=== PATIENT | female | born 2000 | race Two or more races ===

== ENCOUNTER 2019-04-24 12:44 | Emergency (ER) | payer MEDICAID ==
--- NOTE | 2019-04-24 13:15 | EDM.PDOC ---
ED HPI GENERAL MEDICAL PROBLEM - General Chief Complaint: Upper Extremity Injury/Pain Stated Complaint: R HAND INJURY Time Seen by Provider: 04/24/19 12:55 - History of Present Illness INITIAL COMMENTS - FREE TEXT/NARRATIVE: 18-year-old female presents emergency room with a painful right hand. Shortly before arrival she punched a door at work. Now her hand is swollen especially on the ulnar aspect. Patient denies any possibility of . Patient denies any other injury associated with this mishap. Right Hand Pain Score (Numeric/FACES): 8 - Related Data Allergies Allergy/AdvReac Type Severity Reaction Status Date / Time No Known Allergies Allergy Verified 04/24/19 12:48 Home Meds: Home Meds . [No Known Home Meds] 04/24/19 [History] Past Medical History - Past Health History Medical/Surgical History: Denies Medical/Surgical History Social & Family History - Tobacco Use Smoking Status *Q: Former Smoker Used Tobacco, but Quit: Yes Month/Year Tobacco Last Used: february - Recreational Drug Use Recreational Drug Use: No Review of Systems - Review of Systems Review Of Systems: See Below Constitutional: Reports: No Symptoms Respiratory: Reports: No Symptoms Cardiovascular: Reports: No Symptoms GI/Abdominal: Reports: No Symptoms ED EXAM, GENERAL - Physical Exam Exam: See Below Respiratory/Chest: No Respiratory Distress, Lungs Clear, Normal Breath Sounds Cardiovascular: Regular Rate, Rhythm, No Edema, No Murmur Extremities: Other (Examination the right forearm shows no obvious problems supination pronation intact flexion extension at the elbow intact the wrist is starting to swell from the injury along the distal metacarpal on the ulnar aspect. The patient has good range of motion with her index finger is somewhat tender on full extension and flexion. The patient has significant discomfort with trying to move her pinky finger. Thumb appears normal. Neurovascular status appears normal.) ED TRAUMA EXTREMITY PROCEDURES - Splinting Left Upper Extremity Pre-Procedure NV Status: Normal Post-Procedure NV Status: Normal Splint Material: Fiberglass Splint Design: Gutter Applied & Form Fitted By: Provider Provider Post-Splint Application NV Check: NV Status Normal Complications: No Progress/Comments: The patient did much better after having a ulnar gutter splint applied to her left forearm and wrist hand and digits. Neurovascular status after this was applied was normal and at the time of discharge was normal. Course - Vital Signs Last Recorded V/S: Last Vital Signs Temp 36.3 C 04/24/19 12:49 Pulse 62 04/24/19 12:49 Resp 16 04/24/19 12:49 BP 131/76 04/24/19 12:49 Pulse Ox 100 04/24/19 12:49 - Orders/Labs/Meds Orders: Active Orders 24 hr Category Date Time Status Hand Comp Min 3V Rt [CR] Stat Exams 04/24/19 13:09 Taken - Re-Assessments/Exams Free Text/Narrative Re-Assessment/Exam: 04/24/19 14:13 X-ray examination shows fracture of the fourth and fifth metacarpal at about the proximal third. There a palmar flexed deformity of the distal fragments with some milder radial deviation. Case was discussed with Dr. Avila with [facility]'s recommendation is have the patient call their office on Friday for a Friday appointment patient be placed in a ulnar gutter splint. The splint was applied and the patient actually feels quite a bit better having the splinted. Departure - Departure Time of Disposition: 14:14 Disposition: Home, Self-Care 01 Clinical Impression: Fracture, metacarpal shaft Qualifiers: Metacarpal bone: fourth Fracture type: closed Fracture alignment: displaced Laterality: left Fracture, metacarpal Qualifiers: Metacarpal bone: fifth - Discharge Information Instructions: Metacarpal Fracture, [id number], Cast or Splint Care, Adult Referrals: PCP,None [Primary Care Provider] - Forms: ED Department Discharge Additional Instructions: Return to emergency room if any questions problems or worsening symptoms. Return to emergency room if he develop any numbness or tingling in her fingers. Follow-up with [facility]. Call them first thing Friday morning for an appointment on Friday phone number is [phone]. Wear the splint at all times keep your hand elevated as much as you can ice over the hand as tolerated for the next several days. Tylenol or ibuprofen as needed for discomfort. - My Orders Last 24 Hours: My Active Orders 04/24/19 13:09 Hand Comp Min 3V Rt [CR] Stat - Assessment/Plan Last 24 Hours: My Active Orders 04/24/19 13:09 Hand Comp Min 3V Rt [CR] Stat
--- NOTE | 2019-04-25 16:01 | CR ---
Right hand: Four views of the right hand are obtained. Comparison: No prior hand exam. Displaced and angulated fractures are seen within the shaft of the 4th and 5th metacarpals. Soft tissue swelling is noted. No additional fracture or other abnormality is appreciated. Impression: 1. Fractures within the 4th and 5th metacarpals as noted above. 2. Soft tissue swelling. Diagnostic code #3
== END 2019-04-24 14:40 | disposition home or self-care (01) ==
LOC: JD.ED 12:44
DX: S62.325A Displaced fracture of shaft of fourth metacarpal bone, left hand, initial encounter for closed fracture (principal); S62.327A Displaced fracture of shaft of fifth metacarpal bone, left hand, initial encounter for closed fracture; Z87.891 Personal history of nicotine dependence; W22.09XA Striking against other stationary object, initial encounter; Y92.89 Other specified places as the place of occurrence of the external cause; Y99.0 Civilian activity done for income or pay
CPT/HCPCS: 29125; 73130-26-RT; 73130-RT; 99283; 99283-25

== ENCOUNTER 2020-01-28 02:14 | Emergency (ER) | payer MEDICAID ==
--- NOTE | 2020-01-28 03:10 | EDM.PDOC ---
ED HPI GENERAL MEDICAL PROBLEM - General Chief Complaint: Chemical Exposure Stated Complaint: CHEST PAIN Time Seen by Provider: 01/28/20 02:30 Source of Information: Reports: Patient History Limitations: Reports: No Limitations - History of Present Illness INITIAL COMMENTS - FREE TEXT/NARRATIVE: Ms. Mariee is a very pleasant 19-year-old woman who now presents the ED after developing shortness of breath, nausea, and lightheaded after being exposed to chlorine bleach fumes around 01:20 this morning, while at work. 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 The patient states that she was wearing an ordinary cotton mask, not a respirator, but states that she has worked with this bleach in the past without difficulty, but she ordinarily sprays it, then walks away. After scrubbing for a little while, she states that she became overwhelmed by the fumes, therefore she had to step away to get some air. She states that she removed her mask, then became nauseated and lightheaded. Here in the ED, the patient is found to be hemodynamically stable, afebrile, saturating 100% on room air. He states that she has a tingling sensation to her head and torso. Her shortness of breath nausea, and lightheadedness have resolved. She denies experiencing a burning sensation in her nose, mouth, or chest, and she denies experiencing chest pain or palpitations. No prior similar symptoms. Other than this morning's event, the patient denies having a recent fever, chills, sore throat, ear pain, nasal or sinus congestion, cough, dyspnea, chest pain, palpitations, nausea, vomiting, constipation, diarrhea, abdominal pain, urinary symptoms, recent weight gain or weight loss, recent bloody bowel movements or black bowel movements, recent joint aches, headaches, or rashes. The patient states that she works the shift supervisor film processing, but that 2 members of a team on the day shift were found to be positive for the SARS-CoV-2 virus. The dayshift team was quarantined. The patient states that she has not had any contact with any of the members of that day shift team. The patient does not have a PCP. Middle Chest Pain Score (Numeric/FACES): 0 - Related Data Allergies Allergy/AdvReac Type Severity Reaction Status Date / Time No Known Allergies Allergy Verified 01/28/20 02:29 Home Meds: Home Meds . [No Known Home Meds] 04/24/19 [History] Past Medical History Musculoskeletal History: Reports: Fracture (right 4th and 5th metacarpals) Endocrine/Metabolic History: Reports: Obesity/BMI 30+ - Past Surgical History HEENT Surgical History: Reports: Oral Surgery (wisdom teeth extraction) GI Surgical History: Reports: Appendectomy Musculoskeletal Surgical History: Reports: ORIF (right 4th and 5th metacarpals) Social & Family History - Family History Family Medical History: Noncontributory - Tobacco Use Smoking Status *Q: Former Smoker Years of Tobacco use: 1 Packs/Tins Daily: 0.1 Month/Year Tobacco Last Used: Quit 2018 - Caffeine Use Caffeine Use: Reports: Soda - Alcohol Use Alcohol Use History: No - Recreational Drug Use Recreational Drug Use: No - Living Situation & Occupation Living situation: Reports: Single, with Family Occupation: Employed ([employer]) ED ROS GENERAL - Review of Systems Review Of Systems: Comprehensive ROS is negative, except as noted in HPI. ED EXAM, BURN/SMOKE INHALATION - Physical Exam Exam: See Below Exam Limited By: No Limitations General Appearance: Alert, WD/WN, No Apparent Distress Eye Exam: Bilateral Eye: EOMI, Normal Inspection Ears (Abbreviated): Normal External Exam, Normal Canal, Hearing Grossly Normal, Normal TMs Nose: Mouth/Throat: No: Lip Swelling, Oral Rollins, Oral Inflammation, Pharyngeal Erythema, Throat Swelling, Tongue Swelling, Tonsillar Swelling, Uvular Edema Head: Atraumatic, Normocephalic Neck: Normal, Supple, Non-Tender to Palpation, Full Range of Motion. No: Lymphadenophy (R), Lymphadenopy (L) Respiratory: No Respiratory Distress, Lungs Clear, Normal Breath Sounds, No Accessory Muscle Use. No: Decreased Breath Sounds, Crackles, Rhonchi, Wheezing, Prolonged Expiration Cardiovascular: Normal Peripheral Pulses, Regular Rate, Rhythm, No Edema, No Gallop, No JVD, No Murmur, No Rub Peripheral Pulses: 3+: Radial (L), Radial (R) GI/Abdominal: Normal Bowel Sounds, Soft, Non-Tender, No Organomegaly, No Distention, No Abnormal Bruit, No Mass (Female) Exam: Deferred Rectal Exam: Deferred Back Exam: Normal Inspection, Full Range of Motion, NT Extremities: Normal Inspection, Normal Range of Motion, No Pedal Edema, Normal Capillary Refill Neurological: Alert, Oriented, Normal Cognition, No Motor/Sensory Deficits Psychiatric: Normal Affect Skin Exam: Warm, Dry, Intact, Normal Color, No Rash Course - Vital Signs Last Recorded V/S: Last Vital Signs Temp 36.8 C 01/28/20 02:25 Pulse 65 01/28/20 02:25 Resp 14 01/28/20 02:25 BP 131/64 01/28/20 02:25 Pulse Ox 100 01/28/20 02:25 - Orders/Labs/Meds Orders: Active Orders 24 hr Category Date Time Status Chest 2V [CR] Stat Exams 01/28/20 02:57 Ordered - Re-Assessments/Exams Free Text/Narrative Re-Assessment/Exam: 01/28/20 03:00 As above, the patient developed shortness of breath, nausea, and lightheadedness after she breathed in some chlorine bleach fumes for longer than usual. She did not experience nasopharyngeal or lung burning or pain, but she is now experiencing some head and torso tingling and numbness, and it is noted that her oxygen saturation is 100% on room air, strongly suggesting a hyperventilation reaction. Her lungs are entirely clear to auscultation bilaterally. Clinically, I do not suspect a chemical burn, however, I have ordered a chest x- ray just to be certain that there is no sign of pneumonitis. 01/28/20 03:26 Two-view chest radiograph appears to be grossly normal. The cardiac silhouette is within normal limits. No pulmonary vascular congestion. No pleural effusions. No focal infiltrate. No pneumothorax. Formal read per the Radiologist pending. 01/28/20 03:28 X-ray results discussed with the patient. As above, I believe that the patient simply over breathe after being exposed to the bleach fumes, inducing some hyperventilation. She may safely be discharged home. She stated that she does not need a note for work. Departure - Departure Time of Disposition: 03:28 Disposition: Home, Self-Care 01 Condition: Good Clinical Impression: Hyperventilation, Exposure to chemical inhalation - Discharge Information *PRESCRIPTION DRUG MONITORING PROGRAM REVIEWED*: Not Applicable *COPY OF PRESCRIPTION DRUG MONITORING REPORT IN PATIENT SILVIA: Not Applicable Forms: ED Department Discharge Additional Instructions: You were seen in the emergency room after developing shortness of breath, nausea, and lightheadedness, after being exposed to chlorine bleach fumes at work. Work-up in the ER included a chest x-ray, which returned completely normal. There is no sign of a chemical burn to your airways. Based on your history, physical exam, and ER x-ray, you most likely overbreathed (hyperventilated) after being exposed to the bleach fumes. No further treatment is necessary. Your symptoms should resolve on their own. If any other problems, please do not hesitate to return to the ER. Sepsis Event Note (ED) - Evaluation Sepsis Screening Result: No Definite Risk - Focused Exam Vital Signs: Vital Signs Temp Pulse Resp BP Pulse Ox 01/28/20 02:25 36.8 C 65 14 131/64 100 - My Orders Last 24 Hours: My Active Orders 01/28/20 02:57 Chest 2V [CR] Stat - Assessment/Plan Last 24 Hours: My Active Orders 01/28/20 02:57 Chest 2V [CR] Stat
--- NOTE | 2020-01-28 06:41 | CR ---
Chest: 2 views of the chest were obtained. Comparison: No prior chest imaging is available. Heart size and mediastinum are normal. Lungs are clear with no acute parenchymal change. Bony structures are grossly intact. Impression: 1. Nothing acute is seen on 2 view chest x-ray. Diagnostic code #1 Study was dictated in MDT
== END 2020-01-28 03:32 | disposition home or self-care (01) ==
LOC: JD.ED 02:14
DX: R06.4 Hyperventilation (principal); T54.3X1A Toxic effect of corrosive alkalis and alkali-like substances, accidental (unintentional), initial encounter; Z87.891 Personal history of nicotine dependence; E66.9 Obesity, unspecified; Z68.36 Body mass index [BMI] 36.0-36.9, adult
CPT/HCPCS: 71046; 71046-26; 99282; 99284-25

== ENCOUNTER 2020-10-10 01:42 | Emergency (ER) | payer MEDICAID ==
--- NOTE | 2020-10-10 02:12 | EDM.PDOC ---
ED HPI GENERAL MEDICAL PROBLEM - General Chief Complaint: ENT Problem Stated Complaint: NOSE BLEEDS Time Seen by Provider: 10/10/20 01:53 Source of Information: Reports: Patient, Family (Mother) History Limitations: Reports: No Limitations - History of Present Illness INITIAL COMMENTS - FREE TEXT/NARRATIVE: Ms. Mariee is a very pleasant 20-year-old woman who now presents the ED with right-sided epistaxis. She states that she has been experiencing near-daily painless epistaxis, usually on the right, but sometimes on the left, since she was about 8 years old. She experienced another episode tonight, which was originally more severe than usual, but stopped on its own prior to her arrival to the ED. The patient states that she has not previously undergone evaluation by an [facility]. She states that she only recently started applying Vaseline to her nasal septum, which she thinks is helping. Here in the ED, the patient is found to be hemodynamically stable, afebrile, saturating 99% on room air. She appears to be comfortable, in no acute distress. Other than her frequent epistaxis, the patient denies having a recent fever, chills, sore throat, ear pain, nasal or sinus congestion, cough, dyspnea, chest pain, palpitations, nausea, vomiting, constipation, diarrhea, abdominal pain, urinary symptoms, recent weight gain or weight loss, recent bloody bowel movements or black bowel movements, recent joint aches, headaches, or rashes. I reviewed the PMHx/PSHx/SocHx, which was reviewed with the patient by the RN. The patient does not have a PCP. - Related Data Allergies Allergy/AdvReac Type Severity Reaction Status Date / Time No Known Allergies Allergy Verified 10/10/20 01:56 Home Meds: Home Meds . [No Known Home Meds] 04/24/19 [History] Past Medical History HEENT History: Reports: Epistaxis (near-daily x 8 yrs old) Musculoskeletal History: Reports: Fracture Endocrine/Metabolic History: Reports: Obesity/BMI 30+ - Past Surgical History HEENT Surgical History: Reports: Oral Surgery GI Surgical History: Reports: Appendectomy Musculoskeletal Surgical History: Reports: ORIF Social & Family History - Family History Family Medical History: No Pertinent Family History - Tobacco Use Tobacco Use Status *Q: Never Tobacco User - Caffeine Use Caffeine Use: Reports: Soda - Recreational Drug Use Recreational Drug Use: No - Living Situation & Occupation Living situation: Reports: Single, with Family Occupation: Employed ([employer]) ED ROS ENT - Review of Systems Review Of Systems: Comprehensive ROS is negative, except as noted in HPI. ED EXAM, ENT - Physical Exam Exam: See Below Exam Limited By: No Limitations General Appearance: Alert, WD/WN, No Apparent Distress Eye Exam: Bilateral Eye: EOMI, Normal Inspection Ears: Normal External Exam, Normal Canal, Hearing Grossly Normal, Normal TMs Nose: No Blood, Other (Small oozing vessel visible on the right nasal septum, with no fresh or dried blood visible within the nostril. The left nostril is normal in appearance.) Mouth/Throat: Normal Inspection, Normal Gums, Normal Lips, Normal Oropharynx, Normal Teeth Head: Atraumatic, Normocephalic Neck: Normal Inspection, Supple, Non-Tender, Full Range of Motion. No: Lymphadenopathy (L), Lymphadenopathy (R) Course - Vital Signs Last Recorded V/S: Last Vital Signs Temp 36.3 C 10/10/20 01:54 Pulse 83 10/10/20 01:54 Resp 16 10/10/20 01:54 BP 123/69 10/10/20 01:54 Pulse Ox 99 10/10/20 01:54 - Re-Assessments/Exams Free Text/Narrative Re-Assessment/Exam: 10/10/20 02:07 As above, the patient has been suffering from epistaxis on a near-daily basis since she was about 8 years old. She has never seen an ENT. The nosebleed appeared to be especially bad tonight, therefore she came to the ED for evaluation, but it stopped on its own prior to arrival. She has only recently been applying petroleum jelly to her nasal septum. On examination, the patient has a visible vessel on her right nasal septum, with no bleeding or even dried blood visible in the nostril, and the left nostril appears to be normal. We discussed the option of my cauterizing the vessel, however, I pointed out that there is about a 50% chance that cauterization may cause the nose to bleed, in which case the patient would likely wind up receiving a balloon, which she would not like. The patient agreed that I will not cauterize the vessel. Additionally, while the bleeding may seem severe, it is highly unlikely that the patient will become severely anemic from an anterior nosebleed, therefore I am not recommending any blood work. Instead, I am recommending that the patient continue to apply petroleum jelly to both sides of her nasal septum 2 or 3 times a day, to keep it moist, and also consider purchasing a humidifier for home. I explained to the patient how to treat a nosebleed if it occurs, and I will refer her to ENT in [place] for further evaluation. Departure - Departure Time of Disposition: 02:09 Disposition: Home, Self-Care 01 Condition: Good Clinical Impression: Recurrent epistaxis - Discharge Information *PRESCRIPTION DRUG MONITORING PROGRAM REVIEWED*: Not Applicable *COPY OF PRESCRIPTION DRUG MONITORING REPORT IN PATIENT SILVIA: Not Applicable Instructions: Nosebleed, [id number] Referrals: PCP,Remy [Primary Care Provider] - Keyur Lopez MD [Ordering Only Provider] - Forms: ED Department Discharge Additional Instructions: You were seen in the emergency room for recurrent nosebleeds. On examination, a vessel was visible on your right nasal septum, however, after discussion, it was decided to not try to cauterize it, as there is about a 50% chance that cauterization could cause the nose to start bleeding again. We recommend that you apply a thin smear of petroleum jelly to each side of your nasal septum 2 or 3 times a day, to help keep the mucous membranes moist. We recommend that you purchase a cool nuclear chemistry technician humidifier for your home, especially your bedroom, to help keep the humidity up. If you suffer another nosebleed, we recommend that you sit upright, tilt your head slightly forward, and pinch your nostrils tightly, for 10 to 15 minutes. This almost always stops a nosebleed. We recommend that you follow-up with the [facility] (ENT) Dr. Keyur Lopez, in [place], at the next available appointment. If any other problems, please do not hesitate to return to the ER. Sepsis Event Note (ED) - Evaluation Sepsis Screening Result: No Definite Risk - Focused Exam Vital Signs: Vital Signs Temp Pulse Resp BP Pulse Ox 10/10/20 01:54 36.3 C 83 16 123/69 99
== END 2020-10-10 02:21 | disposition home or self-care (01) ==
LOC: JD.ED 01:42
DX: R04.0 Epistaxis (principal); E66.9 Obesity, unspecified; Z68.35 Body mass index [BMI] 35.0-35.9, adult
CPT/HCPCS: 99282; 99283

== ENCOUNTER 2020-12-21 01:29 | Emergency (ER) | payer MEDICAID, BC ==
[2020-12-21] MEDS ORDERED: Nitrofurantoin Monohydrate/Macrocrystalline 100 MG Cap PO STA (02:10)
--- NOTE | 2020-12-21 02:20 | EDM.PDOC ---
ED HPI GENERAL MEDICAL PROBLEM - General Chief Complaint: Genitourinary Problem Stated Complaint: POSS UTI Time Seen by Provider: 12/21/20 01:53 Source of Information: Reports: Patient, Family (Mother) History Limitations: Reports: No Limitations - History of Present Illness INITIAL COMMENTS - FREE TEXT/NARRATIVE: Ms. Mariee is a very pleasant 20-year-old woman who now presents the ED stating that she has had dysuria, a burning and sharp sensation when she urinates, along with lower back pain, since 12/19/2020. She denies having abdominal pain. No recent fever, nausea, or vomiting. No prior similar symptoms. The patient states that she took 4 tablets of OTC Azo around 21:00 last night. Here in the ED, the patient is found to be hemodynamically stable, afebrile, saturating 98% on room air. She appears to be comfortable, in no acute distress. Prior to Friday, the patient denies having a recent fever, chills, sore throat, ear pain, nasal or sinus congestion, cough, dyspnea, chest pain, palpitations, nausea, vomiting, constipation, diarrhea, abdominal pain, urinary symptoms, recent weight gain or weight loss, recent bloody bowel movements or black bowel movements, recent joint aches, headaches, or rashes. The patient does not have a PCP. Bilateral Lower Back Pain Score (Numeric/FACES): 8 - Related Data Allergies Allergy/AdvReac Type Severity Reaction Status Date / Time No Known Allergies Allergy Verified 12/21/20 01:34 Home Meds: Home Meds Phenazopyridine HCl [Azo Standard] 95 mg PO ASDIRECTED PRN 12/21/20 [History] nitrofurantoin macrocrystaL [Nitrofurantoin] 1 cap PO Q12H #9 capsule 12/21/20 [Rx] Past Medical History HEENT History: Reports: Epistaxis (recurrent) Musculoskeletal History: Reports: Fracture (right hand) Endocrine/Metabolic History: Reports: Obesity/BMI 30+ - Past Surgical History HEENT Surgical History: Reports: Oral Surgery (dental extractions) GI Surgical History: Reports: Appendectomy Musculoskeletal Surgical History: Reports: ORIF (right hand) Social & Family History - Tobacco Use Tobacco Use Status *Q: Current Every Day Tobacco User Tobacco Use Within Last Twelve Months: Vaping (Nicotine) Years of Tobacco use: 2 Packs/Tins Daily: 0.2 Tobacco Use Comment: Started smoking at 18 yrs old - Caffeine Use Caffeine Use: Reports: Soda - Alcohol Use Alcohol Use History: Yes Alcohol Use Frequency: Socially - Recreational Drug Use Recreational Drug Use: No - Living Situation & Occupation Living situation: Reports: Single, with Family Occupation: Employed ([employer]) ED ROS GENERAL - Review of Systems Review Of Systems: Comprehensive ROS is negative, except as noted in HPI. ED EXAM, RENAL/ - Physical Exam Exam: See Below Exam Limited By: No Limitations General Appearance: Alert, WD/WN, No Apparent Distress Eye Exam: Bilateral Eye: EOMI, Normal Inspection Ears: Normal External Exam, Hearing Grossly Normal Nose: Normal Inspection Throat/Mouth: Normal Inspection, Normal Lips, Normal Voice, No Airway Compromise Head: Atraumatic, Normocephalic Neck: Normal Inspection, Full Range of Motion Respiratory/Chest: No Respiratory Distress, Lungs Clear, Normal Breath Sounds, No Accessory Muscle Use Cardiovascular: Normal Peripheral Pulses, Regular Rate, Rhythm, No Gallop, No JVD, No Murmur, No Rub GI/Abdominal: Normal Bowel Sounds, Soft, No Organomegaly, No Distention, No Abnormal Bruit, No Mass, Tender (Mild, suprapubic only. Nontender elsewhere.) Back Exam: Normal Inspection, Full Range of Motion. No: CVA Tenderness (L), CVA Tenderness (R) Extremities: Normal Inspection, Normal Range of Motion, Normal Capillary Refill Neurological: Alert, Oriented, Normal Cognition, No Motor/Sensory Deficits Psychiatric: Normal Affect Skin Exam: Warm, Dry, Intact, Normal Color, No Rash Course - Vital Signs Last Recorded V/S: Last Vital Signs Temp 36.2 C 12/21/20 01:35 Pulse 53 L 12/21/20 01:35 Resp 15 12/21/20 01:35 BP 125/59 L 12/21/20 01:35 Pulse Ox 98 12/21/20 01:35 - Orders/Labs/Meds Orders: Active Orders 24 hr Category Date Time Status CULTURE URINE [MREF] Stat Lab 12/21/20 01:45 Received Labs: Laboratory Tests 12/21/20 12/21/20 Range/Units 01:45 01:45 Urine Color [place] H (Yellow) Urine Appearance Slt cloudy H (Clear) Urine pH 5.5 (5.0-8.0) Ur Specific [place] 1.010 (1.005-1.030) Urine Protein 2+ H (Negative) Urine Glucose (UA) Trace H (Negative) Urine Ketones Trace H (Negative) Urine Occult Blood 2+ H (Negative) Urine Nitrite Positive H (Negative) Urine Bilirubin Negative (Negative) Urine Urobilinogen 2.0 H (0.2-1.0) Ur Leukocyte Esterase 3+ H (Negative) Urine RBC 0-5 (0-5) /hpf Urine WBC 20-30 H (0-5) /hpf Urine WBC Clumps Rare (NOT SEEN) /hpf Ur Squamous Epith Cells 0-5 (0-5) /hpf Urine Bacteria Moderate H (FEW) /hpf Urine Mucus Rare (FEW) /hpf Urine HCG, Qual Negative (NEGATIVE) Meds: Medications Discontinued Medications Generic Name Dose Route Start Last Admin Trade Name Freq PRN Reason Stop Dose Admin Nitrofurantoin Macrocrystals 100 mg 12/21/20 02:10 12/21/20 02:15 Nitrofurantoin Monohydrate/Macrocrystalline 100 Mg Cap PO 12/21/20 02:11 100 mg ONETIME STA Administration - Re-Assessments/Exams Free Text/Narrative Re-Assessment/Exam: 12/21/20 02:11 As above, the patient developed dysuria and lower back pain Friday night, then took 4 tablets of Azo last night. A urinalysis was ordered at triage, which demonstrates 2+ occult blood with 0-5 RBCs, 3+ leukocyte esterase with 20-30 WBCs, nitrate positive with moderate bacteria, and 0-5 squamous epithelial cells. A urine test is negative. Her U/A is consistent with a UTI, therefore I have ordered nitrofurantoin, and will submit a prescription to complete a 5-day course. She may continue OTC Azo, however, I have advised her to limit her total dosage to 6 tablets. The patient requested a note to be off work until Friday. Departure - Departure Time of Disposition: 02:13 Disposition: Home, Self-Care 01 Condition: Good Clinical Impression: Cystitis - Discharge Information *PRESCRIPTION DRUG MONITORING PROGRAM REVIEWED*: Not Applicable *COPY OF PRESCRIPTION DRUG MONITORING REPORT IN PATIENT SILVIA: Not Applicable Prescriptions: nitrofurantoin macrocrystaL [Nitrofurantoin] 1 cap PO Q12H #9 capsule Referrals: PCP,None [Primary Care Provider] - Forms: ED Department Discharge, ED Return to Work/School Form Additional Instructions: You were seen in the emergency room after developing painful urination and lower back pain on Friday night. Work-up in the ER included a urinalysis and urine test. Your urinalysis is consistent with a urinary tract infection. Your urine test was negative. You have been started on the antibiotic nitrofurantoin, and a prescription for nitrofurantoin has been sent to the [facility], located in the [facility] [place] [facility]. Take 1 tablet of nitrofurantoin every 12 hours, starting this evening, , 12/21/2020, as prescribed. Finish the entire prescription unless told otherwise by a doctor. As discussed, you may take a total of 6 tablets of Azo, typically taken at 1 tablet 3 times a day for 2 days. Stay adequately hydrated. It does not really matter what type of fluid you drink. A note for work has been provided to you. If any other problems, please do not hesitate to return to the ER. Sepsis Event Note (ED) - Evaluation Sepsis Screening Result: No Definite Risk - Focused Exam Vital Signs: Vital Signs Temp Pulse Resp BP Pulse Ox 12/21/20 01:35 36.2 C 53 L 15 125/59 L 98 - My Orders Last 24 Hours: My Active Orders 12/21/20 01:45 CULTURE URINE [MREF] Stat - Assessment/Plan Last 24 Hours: My Active Orders 12/21/20 01:45 CULTURE URINE [MREF] Stat
== END 2020-12-21 02:27 | disposition home or self-care (01) ==
LOC: JD.ED 01:29
DX: N30.90 Cystitis, unspecified without hematuria (principal); E66.9 Obesity, unspecified; Z68.34 Body mass index [BMI] 34.0-34.9, adult; Z72.0 Tobacco use
CPT/HCPCS: 81001; 81025; 87086; 99283; A9270

== ENCOUNTER 2020-12-31 21:33 | Emergency (ER) | payer BC, MEDICAID ==
--- NOTE | 2020-12-31 22:14 | EDM.PDOC ---
ED HPI GENERAL MEDICAL PROBLEM - General Chief Complaint: Genitourinary Problem Stated Complaint: PAIN WHILE URINATING/BLEEDING Time Seen by Provider: 12/31/20 21:53 Source of Information: Reports: Patient, RN Notes Reviewed History Limitations: Reports: No Limitations - History of Present Illness INITIAL COMMENTS - FREE TEXT/NARRATIVE: Patient is a 20-year-old female returning to the emergency department with complaints of dysuria and hematuria. 10 days ago, she was treated with Macrobid for urinary tract infection. She reports she completed the entire treatment at her symptoms resolved. Yesterday, she noticed some mild suprapubic cramping when she would void. Today she was out camping and states that she had to hold her urine on a few occasions. When she used the bathroom, she noticed blood in her urine and did have burning with urination. She has had no fever, chills, nausea, or vomiting. Denies any back pain. Lower Abdomen Pain Score (Numeric/FACES): 9 - Related Data Allergies Allergy/AdvReac Type Severity Reaction Status Date / Time No Known Allergies Allergy Verified 12/31/20 21:48 Home Meds: Home Meds Cefdinir [Omnicef] 300 mg PO BID 7 Days #13 cap 12/31/20 [Rx] Past Medical History - Past Health History Medical/Surgical History: Denies Medical/Surgical History HEENT History: Reports: Epistaxis Genitourinary History: Reports: UTI, Recurrent, Other (See Below) Other Genitourinary History: cystitis Musculoskeletal History: Reports: Fracture Endocrine/Metabolic History: Reports: Obesity/BMI 30+ - Past Surgical History HEENT Surgical History: Reports: Oral Surgery GI Surgical History: Reports: Appendectomy Musculoskeletal Surgical History: Reports: ORIF Social & Family History - Family History Family Medical History: No Pertinent Family History - Tobacco Use Tobacco Use Status *Q: Current Every Day Tobacco User Years of Tobacco use: 1 Packs/Tins Daily: 1 Used Tobacco, but Quit: No - Caffeine Use Caffeine Use: Reports: None - Recreational Drug Use Recreational Drug Use: No - Living Situation & Occupation Living situation: Reports: Single, with Family Occupation: Employed ([employer]) ED ROS GENERAL - Review of Systems Review Of Systems: Comprehensive ROS is negative, except as noted in HPI. ED EXAM, RENAL/ - Physical Exam Exam: See Below General Appearance: Alert, WD/WN, No Apparent Distress Respiratory/Chest: No Respiratory Distress, Lungs Clear, Normal Breath Sounds, No Accessory Muscle Use, Chest Non-Tender Cardiovascular: Normal Peripheral Pulses, Regular Rate, Rhythm, No Edema, No Gallop, No JVD, No Murmur, No Rub GI/Abdominal: Normal Bowel Sounds, Soft, Non-Tender, No Organomegaly, No Distention, No Abnormal Bruit, No Mass Back Exam: Normal Inspection, Full Range of Motion. No: CVA Tenderness (L), CVA Tenderness (R) Neurological: Alert, Oriented, CN II-XII Intact, Normal Cognition, Normal Gait, Normal Reflexes, No Motor/Sensory Deficits Psychiatric: Normal Affect, Normal Mood Course - Vital Signs Last Recorded V/S: Last Vital Signs Temp 96.9 F 12/31/20 21:41 Pulse 52 L 12/31/20 21:41 Resp 18 12/31/20 21:41 BP 132/79 12/31/20 21:41 Pulse Ox 99 12/31/20 21:41 - Orders/Labs/Meds Orders: Active Orders 24 hr Category Date Time Status CULTURE URINE [MREF] Routine Lab 12/31/20 21:51 Received Labs: Laboratory Tests 12/31/20 Range/Units 21:51 Urine Color [place] H (Yellow) Urine Appearance Cloudy H (Clear) Urine pH 5.5 (5.0-8.0) Ur Specific [place] 1.025 (1.005-1.030) Urine Protein 3+ H (Negative) Urine Glucose (UA) Negative (Negative) Urine Ketones Trace H (Negative) Urine Occult Blood 3+ H (Negative) Urine Nitrite Positive H (Negative) Urine Bilirubin 2+ H (Negative) Urine Urobilinogen 2.0 H (0.2-1.0) Ur Leukocyte Esterase 3+ H (Negative) Urine RBC Too numerous to cnt H (0-5) /hpf Urine WBC 5-10 H (0-5) /hpf Ur Squamous Epith Cells 0-5 (0-5) /hpf Urine Bacteria Many H (FEW) /hpf Urine Mucus Few (FEW) /hpf - Re-Assessments/Exams Free Text/Narrative Re-Assessment/Exam: Is a 20-year-old female presenting to the emergency department with complaints of hematuria and dysuria. She was treated 10 days ago for Macrobid for urinary tract infection. She did finish the course of treatment and states her symptoms did resolve, however they returned last evening and today. Urinalysis collected on triage is grossly positive for urinary tract infection. Urine has been sent for culture. She has no systemic signs of infection at this point. We will start her on cefdinir for treatment. I did recommend that once she is completed treatment, that she follow-up in the clinic to have her urine rechecked and ensure that the infection is cleared. She verbalized understanding of this. Discharge instructions as documented. Departure - Departure Time of Disposition: 22:15 Disposition: Home, Self-Care 01 Condition: Good Clinical Impression: UTI, Urinary tract infectious disease - Discharge Information *PRESCRIPTION DRUG MONITORING PROGRAM REVIEWED*: No *COPY OF PRESCRIPTION DRUG MONITORING REPORT IN PATIENT SILVIA: No Prescriptions: Cefdinir [Omnicef] 300 mg PO BID 7 Days #13 cap Instructions: Urinary Tract Infection, Adult Referrals: PCP,None [Primary Care Provider] - Additional Instructions: You were seen in the emergency department today for recurrence of pain with urination and blood in your urine. Urinalysis does show that you do still have urinary tract infection. You have been started on cefdinir for treatment of this. First dose was given in ER. Take the remaining doses as prescribed. Recommend following up in the clinic in approximately 10 days to have your urine rechecked and ensure that the infection has cleared. If you experience any new or worsening symptoms, please not hesitate to return to the emergency department for reevaluation. Sepsis Event Note (ED) - Evaluation Sepsis Screening Result: No Definite Risk - Focused Exam Vital Signs: Vital Signs Temp Pulse Resp BP Pulse Ox 12/31/20 21:41 96.9 F 52 L 18 132/79 99 - My Orders Last 24 Hours: My Active Orders 12/31/20 21:51 CULTURE URINE [MREF] Routine - Assessment/Plan Last 24 Hours: My Active Orders 12/31/20 21:51 CULTURE URINE [MREF] Routine
[2020-12-31] MEDS ORDERED: Cefdinir 300 MG Cap PO ONE (22:15)
== END 2020-12-31 22:30 | disposition home or self-care (01) ==
LOC: JD.ED 21:33
DX: N39.0 Urinary tract infection, site not specified (principal); E66.9 Obesity, unspecified; Z68.32 Body mass index [BMI] 32.0-32.9, adult; Z72.0 Tobacco use
CPT/HCPCS: 81001; 87086; 99283; A9270

== ENCOUNTER 2021-07-11 11:21 | Emergency (ER) | payer BC, MEDICAID | END 2021-07-11 13:07 | disposition home or self-care (01) | LOC: JD.ED 11:21 | DX: O98.511 Other viral diseases complicating pregnancy, first trimester (principal); U07.1 COVID-19; O99.211 Obesity complicating pregnancy, first trimester; E66.9 Obesity, unspecified; Z3A.13 13 weeks gestation of pregnancy | CPT/HCPCS: 36415; 80053; 85025; 86140; 99284 ==

== ENCOUNTER 2021-12-27 12:31 | Inpatient (IN) | payer MEDICAID ==
[2021-12-27] MEDS ORDERED: Acetaminophen 325 MG Tab PO ONE (14:16)
[2021-12-27] MEDS ORDERED: Nalbuphine HCl 10 MG/ 1ML Amp IVPUSH PRN (16:42)
[2021-12-27] MEDS ORDERED: Ondansetron 4 MG/2 ML SDV IVPUSH PRN (16:42)
[2021-12-27] MEDS ORDERED: Sodium Chloride 0.9% 10 ML Syringe FLUSH PRN (16:42)
[2021-12-27] MEDS ORDERED: Oxytocin/Lactated Ringers 10 UNIT/1,000 ML BAG IV SCH (16:45)
[2021-12-27] MEDS: Oxytocin/Lactated Ringers 10 UNIT/1,000 ML BAG IV SCH (17:39)
[2021-12-27] MEDS: Lactated Ringers 1,000 ML IV SCH ×2 (17:39→20:31)
[2021-12-27] MEDS ORDERED: ePHEDrine 50 MG/ML SDV IVPUSH PRN (19:58)
[2021-12-27] MEDS ORDERED: fentaNYL 100 MCG/2 ML SDV EPIDUR PRN (19:58)
[2021-12-27] MEDS ORDERED: diphenhydrAMINE 50 MG/ML SDV IVPUSH PRN (19:58)
[2021-12-27] MEDS: Bupivacaine/fentaNYL/NS 100 ML Bag EPIDUR PRN (20:30)
[2021-12-27] MEDS ORDERED: Sodium Chloride 0.9% 10 ML Syringe FLUSH SCH (21:00)
[2021-12-28] MEDS: Lactated Ringers 1,000 ML IV SCH (00:15)
[2021-12-28] MEDS ORDERED: Bupivacaine 0.25% 10 ML SDV ONE (01:00)
[2021-12-28] MEDS: Bupivacaine/fentaNYL/NS 100 ML Bag EPIDUR PRN (04:58)
[2021-12-28] MEDS: Oxytocin/Lactated Ringers 10 UNIT/1,000 ML BAG IV SCH (07:08)
[2021-12-28] MEDS ORDERED: Oxytocin/Lactated Ringers 20 UNIT/1,000 ML BAG IV SCH (08:00)
[2021-12-28] MEDS ORDERED: Misoprostol 200 MCG Tab ONE (11:26)
[2021-12-28] MEDS ORDERED: Carboprost Tromethamine 250 MCG/1 ML Amp ONE (11:31)
[2021-12-28] MEDS ORDERED: Carboprost Tromethamine 250 MCG/1 ML Amp IM ONE (11:50)
[2021-12-28] MEDS ORDERED: Misoprostol 200 MCG Tab PO STA (11:50)
[2021-12-28] MEDS ORDERED: Witch Hazel Medicated Pads 40/Jar TOP PRN (13:28)
[2021-12-28] MEDS ORDERED: Ibuprofen 600 MG Tab PO PRN (13:28)
[2021-12-28] MEDS ORDERED: Docusate Sodium 100 MG Cap PO PRN (13:28)
[2021-12-28] MEDS ORDERED: Acetaminophen 325 MG Tab PO PRN (13:28)
[2021-12-28] MEDS ORDERED: Benzocaine/Menthol 20%-0.5% Spray 78 GM Cannister TOP PRN (13:28)
== END 2021-12-29 16:00 | disposition home or self-care (01) | DRG 806 ==
LOC: JD.OBCHECK 12:31 → JD.OB 14:06 → OBSVTOIN 12-28 11:18 → JD.OB 12-28 11:19
PROVIDERS: ADMIT Obstetrics & Gynecology; ATTEND Obstetrics & Gynecology
PROC: 10E0XZZ Delivery of Products of Conception, External Approach (ICD-10-PCS; principal; 2021-12-28)
PROC: 10907ZC Drainage of Amniotic Fluid, Therapeutic from Products of Conception, Via Natural or Artificial Opening (ICD-10-PCS; 2021-12-28)
PROC: 3E033VJ Introduction of Other Hormone into Peripheral Vein, Percutaneous Approach (ICD-10-PCS; 2021-12-28)
PROC: 0HQ9XZZ Repair Perineum Skin, External Approach (ICD-10-PCS; 2021-12-28)
PROC: 3E0R3BZ Introduction of Anesthetic Agent into Spinal Canal, Percutaneous Approach (ICD-10-PCS; 2021-12-28)
PROC: 10907ZC Drainage of Amniotic Fluid, Therapeutic from Products of Conception, Via Natural or Artificial Opening (ICD-10-PCS; 2021-12-28)
PROC: 10H07YZ Insertion of Other Device into Products of Conception, Via Natural or Artificial Opening (ICD-10-PCS; 2021-12-28)
DX: O14.94 Unspecified pre-eclampsia, complicating childbirth (principal); D62 Acute posthemorrhagic anemia; Z37.0 Single live birth; Z3A.38 38 weeks gestation of pregnancy; O70.0 First degree perineal laceration during delivery; O72.1 Other immediate postpartum hemorrhage; O99.02 Anemia complicating childbirth
CPT/HCPCS: 36415; 51702; 59025; 59409; 82565; 82570; 83615; 84156; 84450; 84460; 84520; 84550; 85025; 85027; 85362; 85384; 85610; 86592; 86850; 86900; 86901; A9270-GY; J2590; J3010; J3490; J7120

== ENCOUNTER 2022-07-12 18:28 | Emergency (ER) | payer MEDICAID | END 2022-07-12 20:15 | disposition home or self-care (01) | LOC: SUPCPDRO 18:28 → JD.ED 18:28 | DX: O22.40 Hemorrhoids in pregnancy, unspecified trimester (principal); O99.619 Diseases of the digestive system complicating pregnancy, unspecified trimester; K59.00 Constipation, unspecified; Z86.16 Personal history of COVID-19; Z3A.00 Weeks of gestation of pregnancy not specified | CPT/HCPCS: 99283 ==

== ENCOUNTER 2023-02-06 03:46 | Inpatient (IN) | payer MEDICAID ==
[2023-02-06] MEDS ORDERED: Nalbuphine 10 MG/0.5 ML Syringe IVPUSH PRN (19:00)
[2023-02-06] MEDS ORDERED: Lidocaine 1% 50 ML MDV INJECT ONE (19:00)
[2023-02-06] MEDS ORDERED: Sodium Chloride 0.9% 10 ML Syringe FLUSH PRN (19:00)
[2023-02-06] MEDS ORDERED: Ondansetron 4 MG/2 ML SDV IVPUSH PRN (19:00)
[2023-02-06] MEDS ORDERED: Oxytocin/Lactated Ringers 10 UNIT/1,000 ML BAG IV SCH ×2 (19:00)
[2023-02-06 19:26] LABS: HEMATOCRIT 38.1 % (37.0-47.0); HEMOGLOBIN 12.1 gm/dl (12.0-16.0); MEAN CORPUSCULAR HEMOGLOBIN 24.2 pg (28.0-32.0); MEAN CORPUSCULAR HGB CONC 31.8 g/dl (32.0-36.0); MEAN CORPUSCULAR VOLUME 76.2 fl (83.0-99.0); MEAN PLATELET VOLUME 9.1 fl (9.4-12.3); PLATELET COUNT,PLT 199 K/mm3 (150-400); WHITE BLOOD CELL COUNT,WBC 10.54 K/mm3 (3.9-11.3)
[2023-02-06] MEDS: Lactated Ringers 1,000 ML IV SCH ×2 (20:17→21:27)
[2023-02-06] MEDS ORDERED: Sodium Chloride 0.9% 10 ML Syringe FLUSH SCH (21:00)
[2023-02-06] MEDS ORDERED: ePHEDrine 50 MG/ML SDV IVPUSH PRN (21:14)
[2023-02-06] MEDS ORDERED: diphenhydrAMINE 50 MG/ML SDV IVPUSH PRN (21:14)
[2023-02-06] MEDS ORDERED: Bupivacaine/fentaNYL/NS 100 ML Bag EPIDUR PRN (21:14)
[2023-02-06] MEDS ORDERED: fentaNYL 100 MCG/2 ML SDV EPIDUR PRN (21:14)
[2023-02-07] MEDS ORDERED: Lidocaine 1% 10 ML MDV ONE
[2023-02-07] MEDS: Lactated Ringers 1,000 ML IV SCH (01:07)
[2023-02-07] MEDS: Tranexamic Acid 1,000 MG/10 ML Vial ONE ×2 (04:08→04:42)
[2023-02-07] MEDS ORDERED: Tranexamic Acid 1,000 MG/10 ML Vial IV ONE (04:18)
[2023-02-07] MEDS ORDERED: Carboprost Tromethamine 250 MCG/1 ML Amp IM ONE (04:18)
[2023-02-07] MEDS ORDERED: Methylergonovine 0.2 MG/1 ML Amp IM STA (04:18)
[2023-02-07] MEDS ORDERED: Misoprostol 200 MCG Tab BUCCAL STA (04:18)
[2023-02-07] MEDS ORDERED: Witch Hazel Medicated Pads 40/Jar TOP PRN (04:51)
[2023-02-07] MEDS ORDERED: Acetaminophen 325 MG Tab PO PRN (04:51)
[2023-02-07] MEDS ORDERED: Benzocaine/Menthol 20%-0.5% Spray 78 GM Cannister TOP PRN (04:51)
[2023-02-07] MEDS ORDERED: Docusate Sodium 100 MG Cap PO PRN (04:51)
[2023-02-07] MEDS ORDERED: Ibuprofen 600 MG Tab PO PRN (04:51)
[2023-02-07] MEDS ORDERED: Loperamide 2 MG Cap PO PRN (05:18)
[2023-02-07] MEDS ORDERED: Loperamide 2 MG Cap PO ONE (05:20)
[2023-02-07] MEDS ORDERED: Non-Formulary Medication 1 Each (Sertraline [Zoloft] 50 MG Tablet) PO SCH (21:00)
[2023-02-07] MEDS ORDERED: Sertraline 50 MG Tab PO SCH (21:00)
== END 2023-02-08 10:00 | disposition home or self-care (01) | DRG 806 ==
LOC: JD.OB 03:46 → OBSVTOIN 02-07 03:46 → JD.OB 02-07 03:47
PROVIDERS: ADMIT Obstetrics & Gynecology; ATTEND Obstetrics & Gynecology
PROC: 3E0P7VZ Introduction of Hormone into Female Reproductive, Via Natural or Artificial Opening (ICD-10-PCS; principal; 2023-02-07)
PROC: 10907ZC Drainage of Amniotic Fluid, Therapeutic from Products of Conception, Via Natural or Artificial Opening (ICD-10-PCS; principal; 2023-02-07)
PROC: 3E033VJ Introduction of Other Hormone into Peripheral Vein, Percutaneous Approach (ICD-10-PCS; principal; 2023-02-07)
PROC: 3E0R3BZ Introduction of Anesthetic Agent into Spinal Canal, Percutaneous Approach (ICD-10-PCS; principal; 2023-02-07)
PROC: 00HU33Z Insertion of Infusion Device into Spinal Canal, Percutaneous Approach (ICD-10-PCS; principal; 2023-02-07)
PROC: 10E0XZZ Delivery of Products of Conception, External Approach (ICD-10-PCS; 2023-02-07)
DX: O99.344 Other mental disorders complicating childbirth (principal); O72.1 Other immediate postpartum hemorrhage; Z37.0 Single live birth; O69.81X0 Labor and delivery complicated by cord around neck, without compression, not applicable or unspecified; F41.9 Anxiety disorder, unspecified; O77.0 Labor and delivery complicated by meconium in amniotic fluid; F32.A Depression, unspecified; Z3A.39 39 weeks gestation of pregnancy
CPT/HCPCS: 36415; 51702; 59025; 59409; 85027; 86592; 86850; 86900; 86901; A9270-GY; J2210; J2405; J2590; J3010; J3490; J7120

== ENCOUNTER 2023-03-11 23:47 | Emergency (ER) | payer MEDICAID ==
[2023-03-12 00:37] LABS: BASOPHILS PERCENT AUTO 0.5 % (0.0-1.0); EOSINOPHILS ABSOLUTE AUTO 0.6 K/mm3 (0.0-0.4); EOSINOPHILS PERCENT AUTO 7.7 % (0.0-6.0); HEMATOCRIT 39.7 % (37.0-47.0); HEMOGLOBIN 12.3 gm/dl (12.0-16.0); IMMATURE GRAN ABSOLUTE AUTO 0.02 K/mm3 (0.00-0.05); IMMATURE GRAN PERCENT AUTO 0.2 % (0.0-0.4); LYMPHOCYTES ABSOLUTE AUTO 1.9 K/mm3 (1.0-4.8); LYMPHOCYTES PERCENT AUTO 22.4 % (24.0-44.0); MEAN CORPUSCULAR VOLUME 74.2 fl (83.0-99.0); MEAN PLATELET VOLUME 9.4 fl (9.4-12.3); MONOCYTES ABSOLUTE AUTO 0.7 K/mm3 (0.0-0.8); MONOCYTES PERCENT AUTO 7.8 % (0.0-8.0); NEUTROPHILS ABSOLUTE AUTO 5.1 K/mm3 (1.8-7.7); NEUTROPHILS PERCENT AUTO 61.4 % (41.0-71.0); PLATELET COUNT,PLT 270 K/mm3 (150-400); RED BLOOD CELL COUNT 5.35 M/mm3 (4.10-5.30); WHITE BLOOD CELL COUNT,WBC 8.31 K/mm3 (3.9-11.3)
[2023-03-12 00:58] LABS: ANION GAP 14.5 (5-15); BILIRUBIN TOTAL 0.8 mg/dL (0.2-1.0); BUN/CREATININE RATIO 11.1 (14-18); CALCIUM 9.5 mg/dL (8.5-10.1); CREATININE 0.9 mg/dL (0.55-1.02); EST CRCL DRUG DOSING (CG) 76.23 mL/min; POTASSIUM,K 3.5 mEq/L (3.5-5.1); PROTEIN TOTAL,TP 7.9 g/dl (6.4-8.2)
== END 2023-03-12 01:49 | disposition home or self-care (01) ==
LOC: JD.ED 23:47
DX: F32.A Depression, unspecified (principal); R45.851 Suicidal ideations; F17.210 Nicotine dependence, cigarettes, uncomplicated; E66.9 Obesity, unspecified; Z86.16 Personal history of COVID-19; Z79.899 Other long term (current) drug therapy; Z68.41 Body mass index [BMI] 40.0-44.9, adult
CPT/HCPCS: 36415; 80053; 80143; 80179; 80307; 85025; 99284